=== PATIENT | female | born 1940 | race Native Hawaiian/Other Pacific Islander ===

== ENCOUNTER 2016-09-20 13:18 | Inpatient (IN) | payer OTHER ==
[~2016-09-20] VITALS: Ht 154.9 cm; Wt 83.5 kg
[~2016-09-20 13:18] MED LIST: ASA LO-DOSE81 MG PO; CETIRIZINE10 MG PO; DIOVAN HCT PO; MELOXICAM15 MG PO; NIACIN SR500 M1 PO; RANITIDINE 150150 MG PO; STOOL SOFTNR100 MG PO; VALA500T2 PO
[2016-09-20 15:02] LABS: PLATELET COUNT 208 K/uL (152-353)
[2016-09-20 15:20] VITALS: BP 154/83; TEMP 98.1; Ht 154.9 cm; Wt 83.5 kg
[2016-09-20 16:00] VITALS: BP 154/83; TEMP 98.1
[2016-09-20 16:00] LABS: POTASSIUM 3.3 mmol/L (3.6-5.2); SODIUM 138 mmol/L (136-145)
[2016-09-20 20:00] VITALS: BP 94/45; TEMP 97.8
[2016-09-21] VITALS (7 sets, daily range): BP systolic 97–149; BP diastolic 53–82; TEMP 97.5–98.3
[2016-09-21] MEDS ORDERED: GABA300C2 PO (11:39)
[2016-09-21] MEDS ORDERED: SPIRIVA IN (12:32)
[2016-09-21 14:30] LABS: POTASSIUM 3.8 mmol/L (3.6-5.2); SODIUM 137 mmol/L (136-145)
[2016-09-21 14:31] LABS: PLATELET COUNT 194 K/uL (152-353)
[2016-09-22 04:00] VITALS: BP 110/61; TEMP 98.4
[2016-09-22 04:34] LABS: PLATELET COUNT 163 K/uL (152-353)
[2016-09-22 05:05] LABS: POTASSIUM 3.9 mmol/L (3.6-5.2); SODIUM 136 mmol/L (136-145)
[2016-09-22 08:00] VITALS: BP 123/75; TEMP 98
[2016-09-22 12:00] VITALS: BP 128/80; TEMP 98.8
[2016-09-22 16:00] VITALS: BP 138/76; TEMP 97.8
[2016-09-22 20:00] VITALS: BP 151/69; TEMP 98.3
[2016-09-23] VITALS: BP 131/68; TEMP 98.2
[2016-09-23 04:00] VITALS: BP 130/64; TEMP 98.2
[2016-09-23 05:21] LABS: PLATELET COUNT 176 K/uL (152-353)
[2016-09-23 05:32] LABS: POTASSIUM 3.8 mmol/L (3.6-5.2); SODIUM 140 mmol/L (136-145)
[2016-09-23 08:00] VITALS: BP 144/78; TEMP 97.8
[2016-09-23 12:00] VITALS: BP 151/70; TEMP 97.9
== END 2016-09-23 18:19 | disposition home or self-care (01) | DRG 603 ==
LOC: MED/SURG 13:18
PROVIDERS: ADMIT Family Medicine
DX: L03.314 Cellulitis of groin (principal); N30.00 Acute cystitis without hematuria; A49.02 Methicillin resistant Staphylococcus aureus infection, unspecified site; B96.20 Unspecified Escherichia coli [E. coli] as the cause of diseases classified elsewhere; L29.9 Pruritus, unspecified
CPT/HCPCS: 36415; 51702; 80053; 80170; 81000; 83735; 83880; 84443; 85027; 87040; 87077; 87086; 87088; 87185; 87186; 96365; 96366; 96367; J1450; J1580; J3370